=== PATIENT | male | born 1995 | race Caucasian/White ===

== ENCOUNTER 2022-10-19 18:40 | Emergency (ER) | payer MEDICAID ==
[~2022-10-19] VITALS: Ht 180.3 cm; Wt 104.3 kg
[2022-10-19 18:43] VITALS: BP_SYST 128
[2022-10-19] MEDS ORDERED: MORPHINE 4 MG INJ. 4 MG/ML VIAL IM ONE (19:00)
[2022-10-19 19:34] LABS: BASOPHILS % (AUTO) 0.2 % (0.0-2.0); EOSINOPHILS # (AUTO) 0.1 K/uL (0.0-0.4); EOSINOPHILS % (AUTO) 1.2 % (0.0-4.0); HEMATOCRIT 45.1 % (36-54); HEMOGLOBIN 15.8 g/dL (14.0-18.0); LYMPHOCYTES # (AUTO) 1.8 K/uL (1.0-5.5); LYMPHOCYTES % (AUTO) 30.6 % (20.5-51.5); MEAN CORPUSCULAR HEMOGLOBIN 30 pg (27-31); MEAN CORPUSCULAR HGB CONC 35 % (32-36); MEAN CORPUSCULAR VOLUME 85 fL (79.0-98.0); MONOCYTES # (AUTO) 0.5 K/uL (0.0-1.0); MONOCYTES % (AUTO) 8.4 % (1.7-9.3); NEUTROPHILS # (AUTO) 3.4 K/uL (1.8-7.7); NEUTROPHILS % (AUTO) 59.6 % (40.0-70.0); PLATELET COUNT (AUTO) 182 K/uL (130-430); RED CELL DISTRIBUTION WIDTH 13.9 % (9.0-15.0); WHITE BLOOD COUNT (AUTO) 5.7 K/uL (4.8-10.8)
[2022-10-19 19:42] LABS: CALCIUM 8.9 mg/dL (8.4-11.0); CREATININE 0.96 mg/dL (0.55-1.30)
[2022-10-19 19:47] LABS: ALBUMIN 3.5 g/dL (3.4-4.8); TOTAL BILIRUBIN 0.5 mg/dL (0.0-1.0)
--- NOTE | 2022-10-19 19:50 | NUR ---
Patient presents to ED from [facility] accompanied by LAURA kim. Patient reports abd pain x2days. Patient reports pain 6/10. Patient states "I'm not one to complain, but I havent eaten cause my stomach hurts. I can sleep but when I wake up my stomach hurts again." Patient A/Ox4, VSS, ambulatory, resp even and unlabored. Nad noted at this time. ER MD Sandoval made aware.
--- NOTE | 2022-10-19 20:00 | NUR ---
WILMER Sandoval at bedside.
--- NOTE | 2022-10-19 20:00 | NUR ---
WILMER Sandoval made aware.
[2022-10-19] MEDS ORDERED: ACET-2634 PO (20:05)
[2022-10-19] MEDS ORDERED: ONDA-8 TL (20:05)
--- NOTE | 2022-10-19 20:15 | NUR ---
Patient given apple juice and crackers per patient request. ER MD Sandoval made aware.
[2022-10-19 20:44] VITALS: BP_SYST 121
--- NOTE | 2022-10-19 20:44 | NUR ---
Patient given written and verbal discharge instructions and verbalizes understanding. ER MD discussed with patient the results and treatment provided. Patient in stable condition. ID arm band removed. Rx of Zofran and Tylenol given. Patient educated on pain management and to follow up with PMD. Pain Scale 0/10. Opportunity for questions provided and answered. Medication side effect fact sheet provided. Patient A/Ox4, VSS, ambulatory, resp even and unlabored. Nad noted at this time. Patient in stable condition and accompanied by 2 [facility] deputies.
== END 2022-10-19 20:44 | disposition home or self-care (01) ==
LOC: SED 18:40
DX: R10.13 Epigastric pain (principal); R51.9 Headache, unspecified; R68.83 Chills (without fever); Z79.899 Other long term (current) drug therapy
CPT/HCPCS: 99285; 74176; 80053; 85025; 36415; 76376; 96372; J2270

== ENCOUNTER 2022-10-20 09:15 | Emergency (ER) | payer MEDICAID ==
[~2022-10-20] VITALS: Ht 180.3 cm; Wt 83.9 kg
[~2022-10-20 09:15] MED LIST: ACET-2634 PO; ONDA-8 TL
[2022-10-20 09:25] VITALS: BP_SYST 129
--- NOTE | 2022-10-20 09:25 | NUR ---
Patient to ER bed H1 to gown for evaluation. Side rails up.
--- NOTE | 2022-10-20 09:30 | NUR ---
ER DR. MADRID EXAMINING PT
[2022-10-20 09:46] VITALS: BP_SYST 129
--- NOTE | 2022-10-20 09:47 | NUR ---
Patient given written and verbal discharge instructions and verbalizes understanding. ER MD discussed with patient the results and treatment provided. Patient in stable condition. ID arm band removed. NO Rx given. Patient educated on pain management and to follow up with PMD. Pain Scale 0/10. Opportunity for questions provided and answered. Medication side effect fact sheet provided.
== END 2022-10-20 09:47 ==
LOC: SED 09:15
DX: Z02.89 Encounter for other administrative examinations (principal); R10.9 Unspecified abdominal pain; Z79.899 Other long term (current) drug therapy
CPT/HCPCS: 99283